=== PATIENT | male | born 1995 | race Caucasian/White ===

== ENCOUNTER 2023-07-03 00:49 | Emergency (ER) | payer OTHER, SELFPAY ==
--- NOTE | 2023-07-03 | ECG_ITS ---
Test Reason : CHEST PX Blood Pressure : / mmHG Vent. Rate : 091 BPM Atrial Rate : 091 BPM P-R Int : 124 ms QRS Dur : 094 ms QT Int : 352 ms P-R-T Axes : 061 063 068 degrees QTc Int : 432 ms Normal sinus rhythm with sinus arrhythmia Normal ECG No previous ECGs available Referred By: Generic ED Physician Electronically Signed By:ELISA BOSCH MD
--- NOTE | ~2023-07-03 | XR_ITS ---
EXAMINATION: XR CHEST CLINICAL INFORMATION: Left-sided chest and shoulder pain COMPARISON: None available. TECHNIQUE: 2 views of the chest were obtained. FINDINGS: No significant abnormality is noted involving the heart, lungs, mediastinum, bony thorax or soft tissues. XR/XR chest 2V IMPRESSION: Unremarkable examination.
[2023-07-03 01:01] VITALS: BP 168/100; PULSE 96; O2SAT 99; BMI 25.3
[2023-07-03 01:03] VITALS: BP 97/56; PULSE 91; RESP 16; TEMP 36.6; O2SAT 100
[2023-07-03 01:29] LABS: MANUAL DIFF FLAG NO
[2023-07-03 01:30] LABS: Basophils Percent Auto 0.4 % (0-2); Eosinophils Absolute Auto 0.1 X10*3/uL (0.0-0.4); Eosinophils Percent Auto 1.4 % (0-4); Hematocrit 40.8 % (42.0-52.0); Hemoglobin 13.3 g/dl (14.0-18.0); Imm Gran Abs Auto 0.02 X10*3/uL (0.00-0.03); Imm Gran Pct Auto 0.4 % (0.0-0.4); Lymphocytes Absolute Auto 2.2 X10*3/uL (1.2-4.9); Lymphocytes Percent Auto 38.9 % (20-40); Mean Corpuscular HGB Conc 32.6 g/dl (31.0-36.0); Mean Corpuscular Hemoglobin 27.9 pg (27.0-33.0); Mean Corpuscular Volume 85.5 fL (80.0-98.0); Mean Platelet Volume 9.3 fL (9.4-12.4); Monocytes Absolute Auto 0.8 X10*3/uL (0.1-1.2); Monocytes Percent Auto 14.1 % (2-11); Neutrophils Absolute Auto 2.5 x10*3/uL (2.0-8.3); Neutrophils Percent Auto 44.8 % (45-73); Platelet Count 248 X10*3/uL (160-400); Red Blood Count 4.77 X10*6/uL (4.60-5.80); Red Cell Distribution Width 12.5 % (11.0-16.0); White Blood Count 5.5 X10*3/uL (4.8-10.8)
[2023-07-03 01:45] LABS: Alanine Aminotransferase 14 U/L (0-40); Albumin Level 4.5 g/dL (3.5-5.0); Alkaline Phosphatase 68 U/L (39-117); Anion Gap 12 (12-20); Aspartate Amino Transferase 14 U/L (5-37); Bilirubin Total 0.6 mg/dL (0.0-1.0); Blood Urea Nitrogen 22 mg/dL (9-16); Calcium 9.9 mg/dL (8.4-10.2); Carbon Dioxide 24 mmol/L (22-29); Chloride 106 mmol/L (96-108); Creatinine Clr Calc Pharmacy 94.1; Estimated Glomerular Filt Rate > 60; Glucose Random 114 mg/dL (60-115); Potassium 4.4 mmol/L (3.3-5.1); Sodium 138 mmol/L (135-145); Total Protein 7.3 g/dL (6.5-8.0)
[2023-07-03 01:52] LABS: Troponin-I High Sensitivity < 2.7 ng/L (<3.5-35.0)
[2023-07-03 06:19] VITALS: BP 119/76; PULSE 90; RESP 17; TEMP 36.9; O2SAT 98
--- NOTE | 2023-07-03 06:34 | ED_ITS ---
HPI - Chest Pain General Chief Complaint: Chest Pain Stated Complaint: chest pain Time Seen by Provider: 07/03/23 06:34 Source: patient and EMS Mode of arrival: EMS Limitations: no limitations History of Present Illness HPI narrative: 28 yo male with no significant medical history presents to the ER for evaluation of left shoulder pain that woke him up out of sleep. He states it was a sharp pain that started to radiate into his left chest after about 15 minutes so he called 911. He states the pain has been constant 2/10 as a dull ache but intermittently increases to a 10/10 sharp pain. He states when he takes a deep breath he has pain in the left shoulder. No SOB, diaphoresis, nausea, abdominal pain, but it did radiate to the epigastric area at one point. Overall pain is improved. MD complaint: chest pain and other (left shoulder pain) Onset (ago): hour(s) Timing of current episode: constant Prior episodes: No Onset: during rest Pain location: left chest Pain radiation: left shoulder Severity: mild Pain scale (0-10): 2 Quality: aching and sharp Relieving factors: nothing Exacerbating factors: inspiration Treatment prior to arrival: none Risk Factors Coronary artery disease risk factors: none Thoracic aortic dissection risk factors: none Related Data Allergies Allergy/AdvReac Type Severity Reaction Status Date / Time No Known Allergies Allergy Verified 07/03/23 01:04 [No Known Allergies*] Review of Systems 2 Review of Systems: Yes all other systems are reviewed and are negative [facility] Social History Social History Smoked in Last 30 Days: No Use of substances other than those prescribed or required for medical reasons: No Advance Directives: No Advance Directives Information Provided: No Physical Exam 2 Vital Signs: Vital Signs: Last Vital Signs Temp 97 F 07/03/23 09:55 Pulse 68 07/03/23 09:55 Resp 18 07/03/23 09:55 BP 109/79 07/03/23 09:55 Pulse Ox 98 07/03/23 09:55 O2 Del Method Room Air 07/03/23 09:55 BMI result Body Mass Index 25.3 Appearance: Alert. Oriented X3. No acute distress. Head: normocephalic, atraumatic. Eyes: Pupils equal, round and reactive to light. ENT: Pharynx normal. No tonsillar swelling or exudate. Neck: Normal inspection. Neck supple. CVS: Normal heart rate and rhythm. Pulses normal. Respiratory: No respiratory distress. Breath sounds normal. Abdomen: Soft and nontender. +BS x4 Skin: Skin warm and dry. Normal skin color. Normal skin turgor. No rashes. Extremities: No lower extremity edema. No joint swelling. Neuro/psych: Oriented X 3. No motor deficit. No sensory deficit. CN II-XII intact. Normal speech and cognition. Medical Decision Making Medical Decision Making [facility] [place] Narrative: 28 yo male presenting with left shoulder pain, left chest pain that started around midnight. No other symptoms. No risk factors for cardiac disease. Exam is unremarkable. Troponin negative x2. CXR normal. labs otherwise unremarkable. his pain is described as a dull ache and is mostly in the left shoulder area. he has normal ROM and it is nontender doubt cardiac etiology no trauma to suggest referred pain at this time patient is stable for discharge home Differential Diagnosis Differential Diagnoses: The differential diagnosis associated with the presentation includes ACS, PE, costochondritis, PNA, shoulder tendonitis, anxiety, MSK pain Admission/Observation Consideration of admission/observation: Escalation of care including admission/observation considered Lab Data [facility] [place] Lab Attestation statement: I reviewed the patient's lab results. trop neg x2 07/03/23 01:23 07/03/23 01:23 Labs: Lab Results 07/03/23 07/03/23 Range/Units 01:23 07:28 WBC 5.5 (4.8-10.8) X10*3/uL RBC 4.77 (4.60-5.80) X10*6/uL Hgb 13.3 L (14.0-18.0) g/dl Hct 40.8 L (42.0-52.0) % MCV 85.5 (80.0-98.0) fL MCH 27.9 (27.0-33.0) pg MCHC 32.6 (31.0-36.0) g/dl RDW 12.5 (11.0-16.0) % Plt Count 248 (160-400) X10*3/uL MPV 9.3 L (9.4-12.4) fL Immature Gran % (Auto) 0.4 (0.0-0.4) % Neut % (Auto) 44.8 L (45-73) % Lymph % (Auto) 38.9 (20-40) % [place] % (Auto) 14.1 H (2-11) % Eos % (Auto) 1.4 (0-4) % Baso % (Auto) 0.4 (0-2) % Lymph # (Auto) 2.2 (1.2-4.9) X10*3/uL [place] # (Auto) 0.8 (0.1-1.2) X10*3/uL Eos # (Auto) 0.1 (0.0-0.4) X10*3/uL Baso # (Auto) 0.0 (0.0-0.2) X10*3/uL Abs Immat Gran (auto) 0.02 (0.00-0.03) X10*3/uL Absolute Neuts (auto) 2.5 (2.0-8.3) x10*3/uL Absolute Nucleated RBC 0.000 (0.0-0.012) X10*3/uL Nucleated RBC % (auto) 0.0 (0.0-0.2) /100WBC Sodium 138 (135-145) mmol/L Potassium 4.4 (3.3-5.1) mmol/L Chloride 106 (96-108) mmol/L Carbon Dioxide 24 (22-29) mmol/L Anion Gap 12 (12-20) BUN 22 H (9-16) mg/dL Creatinine 1.13 (0.5-1.4) mg/dL Estim Creat Clear Calc 94.1 Estimated GFR > 60 Random Glucose 114 (60-115) mg/dL Calcium 9.9 (8.4-10.2) mg/dL Magnesium 2.0 (1.6-2.6) mg/dL Total Bilirubin 0.6 (0.0-1.0) mg/dL AST 14 (5-37) U/L ALT 14 (0-40) U/L Alkaline Phosphatase 68 (39-117) U/L Troponin I High Sens < 2.7 < 2.7 (<3.5-35.0) ng/L Total Protein 7.3 (6.5-8.0) g/dL Albumin 4.5 (3.5-5.0) g/dL Independent Interpretation I performed an independent interpretation of an: EKG and Plain X-Ray Interpretation: ekg w/ sinus rhythm, sinus arrythmia, HR 91bpm, FL interval normal, no ST segment elevations or depressions cxr clear, no PNA or PTX. agree w/ radiolody read Radiology Impression Discussion of test interpretation with radiology: I have reviewed the radiologist's reading. Radiologist Impression: EXAMINATION: XR CHEST CLINICAL INFORMATION: Left-sided chest and shoulder pain COMPARISON: None available. TECHNIQUE: 2 views of the chest were obtained. FINDINGS: No significant abnormality is noted involving the heart, lungs, mediastinum, bony thorax or soft tissues. XR/XR chest 2V IMPRESSION: Unremarkable examination. Independent Historian Clinical information obtained from an independent historian. History obtained from or confirmed by: EMS Prescription Management I considered prescription management with: Pain Medication Critical Care Time Critical Care Time Critical Care Time: No Discharge Plan Discharge Clinical Impression: Atypical chest pain Patient Disposition: Home, Self-Care Instructions: Noncardiac Chest Pain (ED) Additional Instructions: your workup today was unremarkable. recommend tylenol or motrin for pain follow up with your doctor If you develop new or worsening symptoms call 911 or come back to the ER for further evaluation. Referrals: Malik Ovalle DO [Primary Care Provider] - Stand Alone Forms: Work/School Release Interventions: ED Discharge Assessment Last Done: 07/03/23 09:55 Discharge Date/Time: 07/03/23 09:57 Print Language: Kinyarwanda
[2023-07-03 08:01] LABS: Troponin-I High Sensitivity < 2.7 ng/L (<3.5-35.0)
[2023-07-03 08:33] VITALS: BP 115/80; PULSE 87; RESP 16; TEMP 36.9; O2SAT 98
--- NOTE | 2023-07-03 08:33 | PC.NURSE ---
this RN resumed care of pt at this time. a&ox4. vss and up to date. pt c/o left sided chest pain that radiates to LUE. denies any numbness/tingling/sob. pt ambulates to the restroom independently w/ a strong/steady gait. repeat troponin obtained. chest xray results pending. no sob/wob noted. respirations even and unlabored. plan of care ongoing. call coelho placed within reach.
[2023-07-03 09:55] VITALS: BP 109/79; PULSE 68; RESP 18; TEMP 36.1; O2SAT 98
== END 2023-07-03 09:57 | disposition home or self-care (01) ==
PROVIDERS: Physician Assistant; Emergency Provider Emergency Medicine; PCP Family Medicine
DX: R07.89 Other chest pain (principal)
CPT/HCPCS: 36415; 71046; 80053; 83735; 84484; 85025; 93005; 99283; 99285

== ENCOUNTER → 2023-07-03 01:11 | Outpatient (BNV) | payer OTHER, SELFPAY | PROVIDERS: Emergency Provider Emergency Medicine; PCP Family Medicine; Visit Provider Internal Medicine Cardiovascular Disease | DX: R07.89 Other chest pain (principal) | CPT/HCPCS: 93010 ==

== ENCOUNTER 2023-07-15 02:51 | Emergency (ER) | payer OTHER, SELFPAY ==
--- NOTE | 2023-07-15 | ECG_ITS ---
Test Reason : CHEST PAIN Blood Pressure : / mmHG Vent. Rate : 086 BPM Atrial Rate : 086 BPM P-R Int : 100 ms QRS Dur : 084 ms QT Int : 366 ms P-R-T Axes : 033 060 054 degrees QTc Int : 437 ms Sinus rhythm with sinus arrhythmia with short MN Otherwise normal ECG When compared with ECG of 03-JUL-2023 01:11, No significant change was found Referred By: Generic ED Physician Electronically Signed By:NERIS WEEKS
[2023-07-15 02:53] VITALS: BP 131/83; PULSE 88; RESP 18; TEMP 36.4; O2SAT 100; BMI 25.1
[2023-07-15 03:07] LABS: MANUAL DIFF FLAG NO
[2023-07-15 03:08] LABS: Basophils Percent Auto 0.5 % (0-2); Eosinophils Absolute Auto 0.1 X10*3/uL (0.0-0.4); Eosinophils Percent Auto 1.4 % (0-4); Hemoglobin 13.3 g/dl (14.0-18.0); Imm Gran Abs Auto 0.01 X10*3/uL (0.00-0.03); Imm Gran Pct Auto 0.2 % (0.0-0.4); Lymphocytes Absolute Auto 2.7 X10*3/uL (1.2-4.9); Lymphocytes Percent Auto 41.1 % (20-40); Mean Corpuscular HGB Conc 33.3 g/dl (31.0-36.0); Mean Corpuscular Hemoglobin 28.7 pg (27.0-33.0); Mean Corpuscular Volume 86.2 fL (80.0-98.0); Mean Platelet Volume 9.2 fL (9.4-12.4); Monocytes Absolute Auto 0.8 X10*3/uL (0.1-1.2); Monocytes Percent Auto 11.6 % (2-11); Neutrophils Percent Auto 45.2 % (45-73); Platelet Count 305 X10*3/uL (160-400); Red Blood Count 4.64 X10*6/uL (4.60-5.80); Red Cell Distribution Width 12.8 % (11.0-16.0); White Blood Count 6.6 X10*3/uL (4.8-10.8)
[2023-07-15 03:20] VITALS: BP 122/75; PULSE 68; RESP 14; TEMP 36.7; O2SAT 97
[2023-07-15 03:29] LABS: Alanine Aminotransferase 14 U/L (0-40); Albumin Level 4.5 g/dL (3.5-5.0); Alkaline Phosphatase 69 U/L (39-117); Anion Gap 17 (12-20); Aspartate Amino Transferase 17 U/L (5-37); Bilirubin Total 0.9 mg/dL (0.0-1.0); Blood Urea Nitrogen 20 mg/dL (9-16); Calcium 9.9 mg/dL (8.4-10.2); Carbon Dioxide 19 mmol/L (22-29); Chloride 108 mmol/L (96-108); Estimated Glomerular Filt Rate > 60; Glucose Random 98 mg/dL (60-115); Potassium 4.5 mmol/L (3.3-5.1); Sodium 139 mmol/L (135-145); Total Protein 7.4 g/dL (6.5-8.0)
[2023-07-15 03:37] LABS: Troponin-I High Sensitivity < 2.7 ng/L (<3.5-35.0)
[2023-07-15 03:45] LABS: Influenza A PCR NEGATIVE (Negative); Influenza B PCR NEGATIVE (Negative); Resp Syncy Virus RNA Qual PCR NEGATIVE (Negative); SARS COV2 PCR INHOUSE NEGATIVE (Negative)
[2023-07-15 05:16] VITALS: PULSE 77
[2023-07-15 05:18] VITALS: BP 122/80; PULSE 74; RESP 13; TEMP 36.8; O2SAT 99
--- NOTE | 2023-07-15 06:09 | ED_ITS ---
HPI - Chest Pain General Chief Complaint: Chest Pain Stated Complaint: Chest pain Time Seen by Provider: 07/15/23 06:02 Source: patient Mode of arrival: ambulatory Limitations: no limitations History of Present Illness HPI narrative: Patient comes to the emergency room complaining of bilateral chest pain. Patient states that this has happened twice, 1st time he was seen on July 02. Patient states that he feels a warm sensation inside of his chest , no reflux/GERD. At this time, patient does not have chest pain. Related Data Allergies Allergy/AdvReac Type Severity Reaction Status Date / Time No Known Allergies Allergy Verified 07/15/23 03:06 [No Known Allergies*] Review of Systems 2 Review of Systems: Constitutional : No Weight loss, No Fever, No Chills, No Night Sweats, No Fatigue, No Malaise ENT/Mouth : No Hearing loss, No Ear Pain, No Nasal Congestion, No Sinus Pain, No Hoarseness, No sore throat, No Rhinorrhea, No Swallowing Difficulty Eyes: No Eye Pain, No Swelling, No Redness, No Foreign Body, No Discharge, No Vision Changes Cardiovascular : Complaining of sensation on the inside of the chest on the left, chest pain earlier today which self resolved, No SOB, No Dyspnea on Exertion, No Orthopnea, No Edema, No Palpitations Respiratory : No Cough, No Sputum, No Wheezing, No Smoke Exposure, No Dyspnea Gastrointestinal : No Nausea, No Vomiting, No Diarrhea, No Constipation, No abdominal Pain, No Hematochezia, No Melena Genitourinary : no irregular bleeding, No Dysuria, No Urinary Frequency, No Hematuria, No Urinary Incontinence, No Urgency, No Flank Pain, No Urinary Flow Changes, No Hesitancy Musculoskeletal : No joint pain, No Myalgias, No Joint Swelling Skin : No Skin Lesions, No rash Neuro : No Weakness, No Numbness, No Paresthesias, No Loss of Consciousness, No Dizziness, No Headache Psych : No Anxiety/Panic, No Depression, No SI/HI/AH/VH, No Social Issues, Heme/Lymph: No Bruising, No Bleeding,No Lymphadenopathy Endocrine : No Polyuria, No Polydipsia, No Temperature Intolerance PMFSH Social History Social History Alcohol intake: current Alcohol intake frequency: a few times a week Alcohol type: beer Smoked in Last 30 Days: No Use of substances other than those prescribed or required for medical reasons: No Advance Directives: No Advance Directives Information Provided: Yes Do you have a plan to hurt others: No Plan Physical Exam 2 Vital Signs: Vital Signs: Last Vital Signs Temp 98.3 F 07/15/23 05:18 Pulse 74 07/15/23 05:18 Resp 13 07/15/23 05:18 BP 122/80 07/15/23 05:18 Pulse Ox 99 07/15/23 05:18 O2 Del Method Room Air 07/15/23 05:18 BMI result Body Mass Index 25.1 Const: Other: Appearance: Alert. Oriented X3. No acute distress. Eyes: Pupils equal, round and reactive to light. ENT: Pharynx normal. Neck: Normal inspection. Neck supple. No lymph nodes noted. No crepitus CVS: Normal heart rate and rhythm. Pulses normal. Normal S1 and S2 Respiratory: No respiratory distress. Breath sounds normal. No Wheezing. No rales Abdomen: Soft and nontender. No rigidity. No distention. Skin: Skin warm and dry. Normal skin color. Normal skin turgor. Extremities: No lower extremity edema. No Lacerations. No Rash Neuro: Oriented X 3. No motor deficit. No sensory deficit. Moving all extremities. No slurred speech. CN 2 through 12 grossly intact Psych: calm, cooperative, normal affect Medical Decision Making Medical Decision Making [facility] Narrative: -my interpretation of EKG: Normal sinus rhythm, heart rate 86, no ST segment depression or elevation, no T-wave inversion, QTC 437 -my interpretation of labs, hematology at baseline, normal chemistry, troponin negative. -patient states that while he was here, his heart rate went up to the 140s and had chest pain. Which happened around 04:00. I reviewed the telemetry report. Interference was detected, no actual arrhythmias. Differential Diagnosis Differential Diagnoses: The differential diagnosis associated with the presentation includes (Pleurisy, ACS, musculoskeletal chest pain) Admission/Observation Consideration of admission/observation: Escalation of care including admission/observation considered (This is patient's 2nd visit complaining of chest pain. Patient was considered) Lab Data [facility] Lab Attestation statement: I reviewed the patient's lab results. 07/15/23 02:59 07/15/23 02:59 Labs: Lab Results 07/15/23 07/15/23 Range/Units 02:59 03:04 WBC 6.6 (4.8-10.8) X10*3/uL RBC 4.64 (4.60-5.80) X10*6/uL Hgb 13.3 L (14.0-18.0) g/dl Hct 40.0 L (42.0-52.0) % MCV 86.2 (80.0-98.0) fL MCH 28.7 (27.0-33.0) pg MCHC 33.3 (31.0-36.0) g/dl RDW 12.8 (11.0-16.0) % Plt Count 305 (160-400) X10*3/uL MPV 9.2 L (9.4-12.4) fL Immature Gran % (Auto) 0.2 (0.0-0.4) % Neut % (Auto) 45.2 (45-73) % Lymph % (Auto) 41.1 H (20-40) % [place] % (Auto) 11.6 H (2-11) % Eos % (Auto) 1.4 (0-4) % Baso % (Auto) 0.5 (0-2) % Lymph # (Auto) 2.7 (1.2-4.9) X10*3/uL [place] # (Auto) 0.8 (0.1-1.2) X10*3/uL Eos # (Auto) 0.1 (0.0-0.4) X10*3/uL Baso # (Auto) 0.0 (0.0-0.2) X10*3/uL Abs Immat Gran (auto) 0.01 (0.00-0.03) X10*3/uL Absolute Neuts (auto) 3.0 (2.0-8.3) x10*3/uL Absolute Nucleated RBC 0.000 (0.0-0.012) X10*3/uL Nucleated RBC % (auto) 0.0 (0.0-0.2) /100WBC Sodium 139 (135-145) mmol/L Potassium 4.5 (3.3-5.1) mmol/L Chloride 108 (96-108) mmol/L Carbon Dioxide 19 L (22-29) mmol/L Anion Gap 17 (12-20) BUN 20 H (9-16) mg/dL Creatinine 0.95 (0.5-1.4) mg/dL Estim Creat Clear Calc 112.0 Estimated GFR > 60 Random Glucose 98 (60-115) mg/dL Calcium 9.9 (8.4-10.2) mg/dL Total Bilirubin 0.9 (0.0-1.0) mg/dL AST 17 (5-37) U/L ALT 14 (0-40) U/L Alkaline Phosphatase 69 (39-117) U/L Troponin I High Sens < 2.7 (<3.5-35.0) ng/L Total Protein 7.4 (6.5-8.0) g/dL Albumin 4.5 (3.5-5.0) g/dL Influenza Type A (PCR) NEGATIVE (Negative) Influenza Type B (PCR) NEGATIVE (Negative) RSV RNA Qual (PCR) NEGATIVE (Negative) SARS-CoV-2 RNA (RT-PCR) NEGATIVE (Negative) Independent Interpretation I performed an independent interpretation of an: EKG Critical Care Time Critical Care Time Critical Care Time: Yes Total Critical Care Time: 35 Attestation: I have personally provided critical care time. Time includes review of lab data, radiology results, discussion with consultants, and monitoring for potential decompensation. Intervention performed as documented. Discharge Plan Discharge Clinical Impression: Atypical chest pain Patient Disposition: Home, Self-Care Instructions: Chest Pain (DC) Additional Instructions: Please follow-up with your primary care physician tomorrow. Please discuss with your primary care physician possibly getting a referral for Cardiology for a Holter monitor. l If you have any worsening or new symptoms, please return to the emergency room or call 911 Referrals: Anibal Castano MD [Physician] - 07/17/23 Print Language: Greek
[2023-07-15 06:27] VITALS: BP 120/72; PULSE 78; RESP 16; TEMP 36.7; O2SAT 98
== END 2023-07-15 06:45 | disposition home or self-care (01) ==
PROVIDERS: Emergency Provider Emergency Medicine
DX: R07.89 Other chest pain (principal); Z03.818 Encounter for observation for suspected exposure to other biological agents ruled out
CPT/HCPCS: 0241U; 36415; 80053; 84484; 85025; 93005; 99283; 99285

== ENCOUNTER → 2023-07-15 02:59 | Outpatient (BNV) | payer OTHER, SELFPAY | PROVIDERS: Emergency Provider Emergency Medicine; Visit Provider Internal Medicine | DX: R07.9 Chest pain, unspecified (principal) | CPT/HCPCS: 93010 ==

== ENCOUNTER 2023-08-01 13:56 | Outpatient (AMB) | payer OTHER, SELFPAY ==
[2023-08-01 14:37] VITALS: BP 120/68; PULSE 96; BMI 25.1
--- NOTE | 2023-08-01 14:37 | MHC.OFFVIS ---
Vital Signs 08/01/23 14:37 Height 5 ft 8 in Weight 165 lb BMI 25.1 BP 120/68 Blood Pressure Location Lt brachial Position Sitting Pulse 96 Pulse Source Pulse Oximeter Intake Visit Reasons: C/07-14/Chest Pain Allergies No Known Allergies [No Known Allergies*] Allergy (Verified 07/15/23 03:06) HPI Comments Details: 28-year-old male presents today for a new patient visit. He reports he has been having some chest left sided pressure/burning. He went to the emergency room twice (07/02 & 07/14) regarding this. On 07/02 it woke him up at night and he felt a increase in intensity so he went for evaluation. It waxes and wanes from mild to moderate intensity and goes into his neck and back at times. He does not notice any trigger or patterns to it. He occasionally gets nauseous or shivers when it occurs. He exercises almost daily without issue. He denies any significant medical issues. But his parents both had chest pains but he is unsure of any diagnosis and his grandparent had a myocaridal infarct which was the reason they passed. [facility] Medical History (Updated 08/01/23 @ 14:51 by Isela Crowley NP) Chest pain Surgical History History of appendectomy Family History (Updated 08/01/23 @ 14:50 by Isela Crowley NP) Mother Chest pain Father Chest pain Maternal Grandmother Myocardial infarct Social History Alcohol intake: current Alcohol intake frequency: a few times a week Alcohol type: beer Patient Tobacco Use Status: Never used Tobacco Review of Systems Const Denies weakness ENT Denies dizziness Card Denies chest pain, Denies chest pain with activity, Denies syncope, Denies rapid heart rate, Denies pedal edema, Denies edema, Denies leg edema, Denies lightheadedness, Denies palpitations, Denies dyspnea, Denies dyspnea on exertion and Denies orthopnea Resp Denies cough, Denies dyspnea and Denies dyspnea on exertion GI Denies hematochezia and Denies change in stool character Musc Denies abnormal gait, Denies muscle cramps, Denies muscle weakness, Denies numbness, Denies radiating pain into limb and Denies tingling Neuro Denies abnormal gait, Denies dizziness, Denies syncope, Denies numbness, Denies tingling and Denies weakness Endo Denies palpitations Physical Exam Vital Signs: Last Vital Signs Pulse 96 08/01/23 14:37 BP 120/68 08/01/23 14:37 BMI result Body Mass Index 25.1 Const General: healthy appearing and no acute distress Orientation/consciousness: patient oriented x3 HEENT Head: Yes normal to inspection Eyes General: appearance normal, both eyes and all related structures Neck Neck: Yes normal visual inspection Chest Chest palpation & inspection: normal inspection of the chest Resp Effort & Inspection: normal respiratory effort Auscultation: clear to auscultation bilaterally Cardio Jugular venous distension: no JVD Palpation: normal PMI Rate: regular rate Rhythm: regular rhythm Heart sounds: S1 normal heart sound present, S2 normal heart sound present, no click, no gallops, no murmurs and no rubs GI Inspection: Yes normal to inspection Palpation (GI): Soft to palpation Skin General skin exam: no rashes or lesions noted Neuro General: patient oriented x3 Extrem General: Yes normal to inspection Psych Appearance: grossly normal Assessment & Plan Assessment & Plan (1) Atypical chest pain: Code(s): R07.89 - Other chest pain Category: Medical Plan: Atypical symptoms. Will get ETT to assess for ischemia and echcoardiogram to assess for any structure abnormalities. Monitor symptoms and any triggering events. ED care if needed. Orders: Orders CA stress test 08/01/23 R07.89 - Other chest pain CA echo transthoracic complete 08/01/23 R07.89 - Other chest pain Coding Level of Care Code New Pt Level 3 (40553) Diagnoses Atypical chest pain R07.89
== END 2023-08-01 15:08 | disposition home or self-care (01) ==
PROVIDERS: Visit Provider Nurse Practitioner
DX: R07.89 Other chest pain (principal)
CPT/HCPCS: 99203

== ENCOUNTER → 2023-08-01 13:56 | Outpatient (BNVA) | payer OTHER, SELFPAY | PROVIDERS: Visit Provider Nurse Practitioner | DX: R07.89 Other chest pain (principal) ==

== ENCOUNTER → 2023-08-24 08:55 | Outpatient (REF) | payer OTHER, SELFPAY ==
--- NOTE | 2023-08-24 08:58 | CA_ITS ---
Acquisition Time: 2023-08-24 09:46:26 Total Exercise Time: 00:10:00 Test Indications: CHEST PAIN Medications: Protocol: MINOO Max HR: 171 BPM 89% of Pred: 192 BPM Max BP: 182/068 mmHG Max Work Load: 11.7 METS Exercise stress test exercise 10 min of Minoo protocol achieving 88 % MPHR , with baseline 2/10 chest ache at baseline, increased to a 3/10, with mild SOB, without arrhythmias, with max BP 182/68, without EKG changes. Chest pain returned to baseline with rest. Test reviewed with Dr. Richardson. Referred By: Isela Crowley Overread By: Isela Crowley
--- NOTE | 2023-08-24 08:58 | CA_ITS ---
Transthoracic Echocardiogram Patient (Last, First, Middle): Tico Damian, Gender: Male Date of : 1995 Age: 28 Procedure Date: 08/24/2023 Procedure Type: Transthoracic Echocardiogram Location: OP Height: 172.72 cm Weight: 74.84 kg BSA: 1.88 m2 Heart Rate: 68 bpm BP: 122 / 80 mmHg Behavioral Health Tech: MARY Referring MD: Isela Crowley [employer]ER Symptoms: R07.89 - Other chest pain Study Quality: Fair ECG Rhythm: Sinus Conclusions: - The left ventricular systolic function is normal. The calculated ejection fraction is 58% by biplane method. - No obvious valvular pathology seen on this study. Findings Left Ventricle Normal left ventricular cavity size. There is normal left ventricular wall thickness. The left ventricular systolic function is normal. The calculated ejection fraction is 58% by biplane method. There is no evidence of regional wall motion abnormalities. Diastolic function is normal for age. LV peak GLS -18.9%. Right Ventricle Normal right ventricular cavity size and systolic function. Atria Both atria are normal in size. Aortic Valve There is a normal trileaflet aortic valve. There is no aortic valve stenosis. There is no aortic valve regurgitation. Mitral Valve The mitral valve appears normal. There is no mitral valve regurgitation. There is no mitral valve stenosis. Pulmonic Valve The pulmonic valve is likely normal. Tricuspid Valve There is trace tricuspid valve regurgitation. There is no evidence of pulmonary hypertension. Great Vessels The asc aorta is normal in size. Venous The inferior vena cava is normal in size and collapses greater than 50% with inspiration. Pericardium/Pleural There is no evidence of pericardial effusion. Prior Study Comparison No prior study available for comparison. Recommendations, Care & Conclusions No obvious valvular pathology seen on this study. Measurements 2D Linear Measurements IVSd: 0.76 0.6-0.9/0.6-1.0 cm LVIDd: 5.19 3.9-5.3/4.2-5.9 cm LVIDd Index: 2.76 2.4-3.2/2.2-3.1 cm/m2 LVIDs: 3.58 2.0-3.6 cm LVPWd: 0.79 0.7-1.1 cm LA Diam: 3.20 2.7-3.8/3.0-4.0 cm LAIDs Index: 1.70 1.5-2.3 cm/m2 LV Mass: 172.76 67-162/88-224 g LV Mass Index: 91.89 43-95/49-115 g/m2 LVOT Diam: 2.10 3.0+(-)1.3 cm 2D Systolic Function EF 4C: 57.20 >55% EF 2C: 60.20 >55% EF BiP: 58.40 >55% Mitral Valve MV Pk E: 0.77 MV PK A: 0.61 MV Decel Time: 244.00 E/A: 1.30 E'Lateral: 17.40 E'Medial: 10.70 E/E' Med: 7.20 E/E' Lat: 4.40 PHT: 72.00 MVA PHT: 3.06 Decel [place]: 3.14 Aortic Valve AoV Pk Randall: 1.16 AoV Mn Randall: 0.81 AoV VTI: 0.26 AoV Pk Grad: 5.00 Aov Mn Grad: 3.00 HARLEY Cont.VTI: 3.25 LVOT LVOT Pk Randall: 1.19 LVOT Mn Randall: 0.82 LVOT VTI: 0.25 LVOT Pk Grad: 6.00 LVOT Mn Grad: 3.00 LVOT Diam: 2.10 LVOT Area: 3.46 Diastolic Function MV Pk E: 0.77 MV Pk A: 0.61 E/A: 1.30 E'Medial: 10.70 E/E' Med: 7.20 E' Laterial: 17.40 E/E' Lat: 4.40 Right Ventricle TAPSE (mm): 26.90 TVS' Randall: 13.40 Tricuspid Valve TR Pk Randall: 2.16 TR Pk Grad: 19.00 RA Press: 3.00 RVSP: 22.00 Great Vessels Aorta Sinus of Valsalva: 3.30 2.0-3.5 cm Ao Asc: 3.00 2.1-3.4 cm Pulmonary Valve PV Pk Randall: 1.13 Peak PV Grad: 5.00 Updated in Other Vendor System with Status of Final Anish Richardson MD electronically signed on 08/25/2023 3:52:18 PM with status of Final
== END ==
LOC: HO.CARD 08:55
PROVIDERS: PCP Internal Medicine; Visit Provider Nurse Practitioner
DX: R07.89 Other chest pain (principal)
CPT/HCPCS: 93017; 93306; 93356

== ENCOUNTER → 2023-08-24 08:58 | Outpatient (BNV) | payer OTHER, SELFPAY | PROVIDERS: PCP Internal Medicine; Visit Provider Nurse Practitioner | DX: R07.89 Other chest pain (principal) | CPT/HCPCS: 93016; 93018; 93350; 93356 ==

== ENCOUNTER 2023-09-07 13:31 | Outpatient (AMB) | payer OTHER, SELFPAY ==
--- NOTE | 2023-09-07 13:42 | A.OFFVIS_ITS ---
Vital Signs 09/07/23 13:43 Height 5 ft 8 in Weight 167 lb 8.821 oz BMI 25.5 BP 120/68 Blood Pressure Location Lt brachial Position Sitting Pulse 87 Pulse Source Pulse Oximeter Intake Visit Reasons: 6 wk s/p ett/ echo Allergies No Known Allergies [No Known Allergies*] Allergy (Verified 07/15/23 03:06) HPI Comments Details: 28-year-old male presents today for a new patient visit. He reports he still been having some chest left sided pressure/burning but it has lessened in the last week in intesinty. He went to the emergency room twice (07/02 & 07/14) regarding this. On 07/02 it woke him up at night and he felt a increase in intensity so he went for evaluation. It waxes and wanes from mild to moderate intensity and goes into his neck and back at times. He does not notice any trigger or patterns to it. He exercises almost daily without issue. He denies any significant medical issues. But his parents both had chest pains but he is unsure of any diagnosis and his grandparent had a myocaridal infarct which was the reason they passed. He did his stress test and echocardiogram. [facility] Medical History (Updated 09/07/23 @ 13:57 by Isela Crowley NP) Chest pain Surgical History History of appendectomy Family History (Updated 08/01/23 @ 14:50 by Isela Crowley NP) Mother Chest pain Father Chest pain Maternal Grandmother Myocardial infarct Social History Alcohol intake: current Alcohol intake frequency: a few times a week Alcohol type: beer Patient Tobacco Use Status: Never used Tobacco Review of Systems Const Denies weakness ENT Denies dizziness Card Reports chest pain, Denies chest pain with activity, Denies syncope, Denies rapid heart rate, Denies pedal edema, Denies edema, Denies leg edema, Denies lightheadedness, Denies palpitations, Denies dyspnea, Denies dyspnea on exertion and Denies orthopnea Resp Denies cough, Denies dyspnea and Denies dyspnea on exertion GI Denies hematochezia and Denies change in stool character Musc Denies abnormal gait, Denies muscle cramps, Denies muscle weakness, Denies numbness, Denies radiating pain into limb and Denies tingling Neuro Denies abnormal gait, Denies dizziness, Denies syncope, Denies numbness, Denies tingling and Denies weakness Endo Denies palpitations Physical Exam Vital Signs: Last Vital Signs Pulse 87 09/07/23 13:43 BP 120/68 09/07/23 13:43 BMI result Body Mass Index 25.5 Const General: healthy appearing and no acute distress Orientation/consciousness: patient oriented x3 HEENT Head: Yes normal to inspection Eyes General: appearance normal, both eyes and all related structures Neck Neck: Yes normal visual inspection Chest Chest palpation & inspection: normal inspection of the chest Resp Effort & Inspection: normal respiratory effort Auscultation: clear to auscultation bilaterally Cardio Jugular venous distension: no JVD Palpation: normal PMI Rate: regular rate Rhythm: regular rhythm Heart sounds: S1 normal heart sound present, S2 normal heart sound present, no click, no gallops, no murmurs and no rubs GI Inspection: Yes normal to inspection Palpation (GI): Soft to palpation Skin General skin exam: no rashes or lesions noted Neuro General: patient oriented x3 Extrem General: Yes normal to inspection Psych Appearance: grossly normal Office Procedures EKG Details: EKG today. Normal sinus rhythm with sinus arrhthmia. Rate 98 ms. QTC 437 ms. OK 120 ms. [id number], Complete Assessment & Plan Assessment & Plan (1) Chest pain: Code(s): R07.9 - Chest pain, unspecified Category: Medical Plan: Atypical chest pains with family history of NE. Will do stress echcoardiogram to assess for ischemia. Heart healthy lifestyle discussed. Avoidance of salt and stimulants. ED care if needed. Orders: Orders CA echo stress exercise w con 09/07/23 R07.9 - Chest pain, unspecified Coding Level of Care Code Est Pt Level 3 (31180) Diagnoses Chest pain R07.9 CPT Codes EKG - CPT: 38290-[id number], Complete ([id number])
[2023-09-07 13:43] VITALS: BP 120/68; PULSE 87; BMI 25.5
== END 2023-09-07 14:07 | disposition home or self-care (01) ==
PROVIDERS: Visit Provider Nurse Practitioner
DX: R07.9 Chest pain, unspecified (principal)
CPT/HCPCS: 93010; 99213

== ENCOUNTER → 2023-09-07 13:31 | Outpatient (BNVA) | payer OTHER, SELFPAY | PROVIDERS: Visit Provider Nurse Practitioner | DX: R07.9 Chest pain, unspecified (principal) | CPT/HCPCS: 93005 ==

== ENCOUNTER → 2023-10-23 10:45 | Outpatient (REF) | payer OTHER, SELFPAY ==
--- NOTE | 2023-10-23 10:59 | CA_ITS ---
Acquisition Time: 2023-10-23 10:51:27 Total Exercise Time: 00:10:59 Test Indications: Chest Pain Medications: Protocol: MINOO Max HR: 181 BPM 94% of Pred: 192 BPM Max BP: 168/070 mmHG Max Work Load: 13.3 METS Exercise stress test exercise 10 min 59 sec of Minoo protocol achieving 94% MPHR, with 2/10 chest discomfort at baseline. 1/10 at peak and recovery, mild SOB, without arrhythmias, with normotensive response to exercise, without EKG changes. Echo images obtained by tech at rest and immediately post peak exercise. Definity contrast used. Test reviewed with Dr. Richardson. Referred By: Isela Crowley Overread By: Isela Crowley
== END ==
LOC: HO.CARD 10:45
PROVIDERS: Visit Provider Nurse Practitioner
DX: R07.9 Chest pain, unspecified (principal)
CPT/HCPCS: 93350; Q9957

== ENCOUNTER → 2023-10-23 10:59 | Outpatient (BNV) | payer OTHER, SELFPAY | PROVIDERS: Visit Provider Nurse Practitioner | DX: R07.9 Chest pain, unspecified (principal); R06.02 Shortness of breath | CPT/HCPCS: 93016; 93018; 93350; 93352 ==

== ENCOUNTER 2023-10-27 12:37 | Outpatient (AMB) | payer OTHER, SELFPAY ==
[2023-10-27 13:02] VITALS: BP 120/62; PULSE 87; BMI 25.1
--- NOTE | 2023-10-27 13:02 | A.OFFVIS_ITS ---
Vital Signs 10/27/23 13:02 Height 5 ft 8 in Weight 165 lb 5.547 oz BMI 25.1 BP 120/62 Blood Pressure Location Lt brachial Position Sitting Pulse 87 Pulse Source Pulse Oximeter Intake Visit Reasons: 6 wk follow up- Echo Allergies No Known Allergies [No Known Allergies*] Allergy (Verified 07/15/23 03:06) HPI Comments Details: 28-year-old male presents today for a new patient visit. He reports he still been having some chest left sided pressure/burning. It waxes and wanes from mild to moderate intensity and goes into his neck and back at times. He does not notice any trigger or patterns to it. He exercises almost daily without symptoms. He denies any significant medical issues. Other than the chest discomforts he reports he has been doing well. Seeing his primary care doctor next week. But his parents both had chest pains but he is unsure of any diagnosis and his grandparent had a myocaridal infarct which was the reason they passed. He did his stress test and echocardiogram. Then had a stress echocardiogram. [facility] Medical History Chest pain Surgical History History of appendectomy Family History Mother Chest pain Father Chest pain Maternal Grandmother Myocardial infarct Social History Alcohol intake: current Alcohol intake frequency: a few times a week Alcohol type: beer Patient Tobacco Use Status: Never used Tobacco Review of Systems Const Denies weakness ENT Denies dizziness Card Denies chest pain, Denies chest pain with activity, Denies syncope, Denies rapid heart rate, Denies pedal edema, Denies edema, Denies leg edema, Denies lightheadedness, Denies palpitations, Denies dyspnea, Denies dyspnea on exertion and Denies orthopnea Resp Denies cough, Denies dyspnea and Denies dyspnea on exertion GI Denies hematochezia and Denies change in stool character Musc Denies abnormal gait, Denies muscle cramps, Denies muscle weakness, Denies numbness, Denies radiating pain into limb and Denies tingling Neuro Denies abnormal gait, Denies dizziness, Denies syncope, Denies numbness, Denies tingling and Denies weakness Endo Denies palpitations Physical Exam Vital Signs: Last Vital Signs Pulse 87 10/27/23 13:02 BP 120/62 10/27/23 13:02 BMI result Body Mass Index 25.1 Const General: healthy appearing and no acute distress Orientation/consciousness: patient oriented x3 HEENT Head: Yes normal to inspection Eyes General: appearance normal, both eyes and all related structures Neck Neck: Yes normal visual inspection Chest Chest palpation & inspection: normal inspection of the chest Resp Effort & Inspection: normal respiratory effort Auscultation: clear to auscultation bilaterally Cardio Jugular venous distension: no JVD Palpation: normal PMI Rate: regular rate Rhythm: regular rhythm Heart sounds: S1 normal heart sound present, S2 normal heart sound present, no click, no gallops, no murmurs and no rubs GI Inspection: Yes normal to inspection Palpation (GI): Soft to palpation Skin General skin exam: no rashes or lesions noted Neuro General: patient oriented x3 Extrem General: Yes normal to inspection Psych Appearance: grossly normal Results Reviewed Results Reviewed: Exercise stress test exercise 10 min 59 sec of Espinoza protocol achieving 94% MPHR, with 2/10 chest discomfort at baseline. 1/10 at peak and recovery, mild SOB, without arrhythmias, with normotensive response to exercise, without EKG changes. Echo images obtained by tech at rest and immediately post peak exercise. Definity contrast used. Test reviewed with Dr. Weeks. Exercise stress echocardiogram reviewed. At rest, there is normal LVEF and wall motion. With peak exercise, there is approrpriate augmentation of wall thickening and contractility. There is normal decrease in end-systolic volumes. There is no evidence of exercise induced diastolic dysfunction or pulmonary hypertension. Overall, normal study. Referred By: Isela Crowley Overread By: NERIS WEEKS Assessment & Plan Assessment & Plan (1) Chest pain: Code(s): R07.9 - Chest pain, unspecified Category: Medical Plan Atypical chest discomfort. Underwent stress testing on 08/24/2023 with 10 minutes of Espinoza protocol with an increase in chest pain from 2 to 3/10 chest discomfort. Echocardiogram at that time showed normal ejection fraction of 58%. Stress echocardiogram showed excellent exercise tolerance of 10 minutes 59 seconds of a Espinoza protocol achieving 94% target heart rate with a baseline of 2/10 chest discomfort, 1/10 at peak and recovery with mild shortness of breath without arrhythmias and without EKG changes. Echo images showed appropriate augmentation of wall thickening and contractility. There was no evidence of exercise-induced diastolic dysfunction or pulmonary hypertension. Overall, a normal study. Patient advised to continue to exercise as tolerated, avoid stimulants such as caffeine, and heart healthy diet. Signs and symptoms of angina reviewed. Emergency care if needed. He can follow up with us as needed. If changes in cardiac status occur he can call to obtain an appointment. He is seeing primary care next week. Coding Level of Care Code Est Pt Level 3 (15863) Diagnoses Chest pain R07.9
== END 2023-10-27 13:16 | disposition home or self-care (01) ==
PROVIDERS: Visit Provider Nurse Practitioner
DX: R07.9 Chest pain, unspecified (principal)
CPT/HCPCS: 99213

== ENCOUNTER → 2023-10-27 12:37 | Outpatient (BNVA) | payer OTHER, SELFPAY | PROVIDERS: Visit Provider Nurse Practitioner | DX: R07.89 Other chest pain (principal) ==